=== PATIENT | female | born 1980 | race Caucasian/White ===

== ENCOUNTER 2018-06-16 11:59 | Emergency (ER) | payer MEDICAID ==
[~2018-06-16] VITALS: Ht 167.6 cm; Wt 108.4 kg
[2018-06-16] MEDS ORDERED: IPRATRPIUM/ALBUTEROL 0.5/2.5MG 3 ML NEBU. NEB ONE (12:45)
[2018-06-16] MEDS ORDERED: IV NORMAL SALINE 1000ML BAG 1,000 ML IV ONE (12:45)
--- NOTE | 2018-06-16 13:44 | RAD ---
EXAM: Chest, single view. HISTORY: Cough. COMPARISON: None. FINDINGS: A frontal view of the chest is obtained. There is no infiltrate, pleural effusion or pneumothorax. The heart is normal in size. IMPRESSION: No acute pulmonary finding. Electronically signed by: Payal Evans MD (06/16/2018 1:41 PM) [facility]
[2018-06-16 13:59] LABS: BASO # 0.1 x10^3/uL (0.0-0.2); BASO % 1 % (0-3); EOS # 0.1 x10^3/uL (0.0-0.7); EOS % 1 % (0-3); HEMATOCRIT 37.3 % (36.0-47.0); HEMOGLOBIN 12.8 g/dL (12.0-15.5); LYMPH # 1.8 x10^3/uL (1.0-4.8); LYMPH % 21 % (24-48); MEAN CORPUSCULAR HEMOGLOBIN 29 pg (25-35); MEAN CORPUSCULAR HGB CONC 34 g/dL (31-37); MEAN CORPUSCULAR VOLUME 85 fL (79-100); MONO # 0.4 x10^3/uL (0.0-1.1); MONO % 4 % (0-9); NEUT # 6.2 x10^3uL (1.8-7.7); NEUT % 73 % (31-73); PLATELET COUNT 260 x10^3/uL (140-400); RED BLOOD COUNT 4.38 x10^6/uL (3.50-5.40); WHITE BLOOD COUNT 8.5 x10^3/uL (4.0-11.0)
[2018-06-16 14:12] LABS: CALCIUM 9.4 mg/dL (8.5-10.1); CREATININE 0.9 mg/dL (0.6-1.0); GFR 69.3; POTASSIUM 3.7 mmol/L (3.5-5.1)
[2018-06-16 14:18] LABS: TOTAL BILIRUBIN 0.3 mg/dL (0.2-1.0); TOTAL PROTEIN 8.2 g/dL (6.4-8.2)
[2018-06-16 14:20] VITALS: BP 142/89
[2018-06-16] MEDS ORDERED: MECLIZINE HCL 12.5 MG TABLET. PO ONE (14:45)
[2018-06-16] MEDS ORDERED: KETOROLAC 15 MG/ML VIAL. IV ONE (14:45)
[2018-06-16 15:01] LABS: BILIRUBIN,URINE NEGATIVE (NEG); CLARITY,URINE CLEAR; COLOR,URINE YELLOW; NITRITE,URINE POSITIVE (NEG); PH,URINE 5.5; PROTEIN,URINE NEGATIVE (NEG-TRACE); UROBILINOGEN,URINE 0.2 mg/dL (0.2 mg/dL)
[2018-06-16] MEDS ORDERED: VENTOLIN HFA18 GM INH (15:01)
[2018-06-16] MEDS ORDERED: PRED50TA PO (15:01)
[2018-06-16 15:21] LABS: BACTERIA,URINE MANY /HPF (0-FEW); RBC,URINE 0 /HPF (0-2); SQUAMOUS EPITHELIAL CELL,UR MOD /LPF
--- NOTE | 2018-06-16 17:32 | PHYS DOC ---
Past Medical History Past Medical History: Asthma, GERD Past Surgical History: Cholecystectomy, Hysterectomy Alcohol Use: None Drug Use: None Adult General Chief Complaint Chief Complaint: ASTHMA HPI HPI Patient is a 38 year old female who is presenting with shortness of breath and lightheadedness and dizziness. She is just moving here from [place] she just got here yesterday she has had a cough with wheezing she does not have any albuterol at home she did not bring it. In addition she feels dizzy and lightheaded she thinks that is related to help short of breath she is feeling she has had no fever she does have mild to moderate headache that is gradually getting worse worse with the lights in the emergency room she does have a prior history of headaches. No fever chest pain worse with coughing Review of Systems Review of Systems Constitutional: Denies fever or chills [] Eyes: Denies change in visual acuity, redness, or eye pain [] HENT: Denies nasal congestion or sore throat [] Musculoskeletal: Denies back pain or joint pain [] Integument: Denies rash or skin lesions [] Neurologic: Denies, focal weakness or sensory changes [] Endocrine: Denies polyuria or polydipsia [] All other systems were reviewed and found to be within normal limits, except as documented in this note. Current Medications Current Medications Current Medications Medications (Trade) Dose Ordered Sig/Rena Start Time Stop Time Status Last Admin Dose Admin Albuterol/ Ipratropium (Duoneb) 3 ml 1X ONCE 06/16/18 12:45 06/16/18 12:50 DC 06/16/18 13:18 3 ML Ketorolac Tromethamine (Toradol 15mg Vial) 15 mg 1X ONCE 06/16/18 14:45 06/16/18 14:55 DC 06/16/18 15:04 15 MG Meclizine HCl (Antivert) 25 mg 1X ONCE 06/16/18 14:45 06/16/18 14:55 DC 06/16/18 15:02 25 MG Sodium Chloride 1,000 ml @ 1,000 mls/hr 1X ONCE 06/16/18 12:45 06/16/18 13:44 DC 06/16/18 13:03 1,000 MLS/HR Allergies Allergies Allergies Coded Allergies Type Severity Reaction Last Updated Verified Penicillins Allergy Unknown 06/16/18 Yes Sulfa (Sulfonamide Antibiotics) Allergy Unknown 06/16/18 Yes doxycycline Allergy Unknown 06/16/18 Yes Physical Exam Physical Exam Constitutional: Well developed, well nourished, no acute distress, non-toxic appearance. [] HENT: Normocephalic, atraumatic, bilateral external ears normal, oropharynx moist, no oral exudates, nose normal. [] Eyes: PERRLA, EOMI, conjunctiva normal, no discharge. [] Neck: Normal range of motion, no tenderness, supple, no stridor. [] Cardiovascular:Heart rate regular rhythm, no murmur [] Lungs & Thorax: Wheezing noted bilaterally speak in full sentences Abdomen: Bowel sounds normal, soft, no tenderness, no masses, no pulsatile masses. [] Skin: Warm, dry, no erythema, no rash. [] Back: No tenderness, no CVA tenderness. [] Extremities: No tenderness, no cyanosis, no clubbing, ROM intact, no edema. [] Neurologic: Alert and oriented X 3, normal motor function, normal sensory function, no focal deficits noted. []Cranial nerves intact Psychologic: Affect normal, judgement normal, mood normal. [] Current Patient Data Vital Signs Vital Signs Date Time Temp Pulse Resp B/P (MAP) Pulse Ox O2 Delivery O2 Flow Rate FiO2 06/16/18 14:20 90 14 142/89 (106) 97 06/16/18 13:50 Room Air 06/16/18 12:15 97.4 97.4 Lab Values Laboratory Tests Test 06/16/18 13:45 06/16/18 14:44 White Blood Count 8.5 x10^3/uL (4.0-11.0) Red Blood Count 4.38 x10^6/uL (3.50-5.40) Hemoglobin 12.8 g/dL (12.0-15.5) Hematocrit 37.3 % (36.0-47.0) Mean Corpuscular Volume 85 fL (79-100) Mean Corpuscular Hemoglobin 29 pg (25-35) Mean Corpuscular Hemoglobin Concent 34 g/dL (31-37) Red Cell Distribution Width 14.0 % (11.5-14.5) Platelet Count 260 x10^3/uL (140-400) Neutrophils (%) (Auto) 73 % (31-73) Lymphocytes (%) (Auto) 21 % (24-48) L Monocytes (%) (Auto) 4 % (0-9) Eosinophils (%) (Auto) 1 % (0-3) Basophils (%) (Auto) 1 % (0-3) Neutrophils # (Auto) 6.2 x10^3uL (1.8-7.7) Lymphocytes # (Auto) 1.8 x10^3/uL (1.0-4.8) Monocytes # (Auto) 0.4 x10^3/uL (0.0-1.1) Eosinophils # (Auto) 0.1 x10^3/uL (0.0-0.7) Basophils # (Auto) 0.1 x10^3/uL (0.0-0.2) Maternal Serum HCG Beta Subunit 1 mIU/mL (0-5) Sodium Level 139 mmol/L (136-145) Potassium Level 3.7 mmol/L (3.5-5.1) Chloride Level 103 mmol/L (98-107) Carbon Dioxide Level 28 mmol/L (21-32) Anion Gap 8 (6-14) Blood Urea Nitrogen 13 mg/dL (7-20) Creatinine 0.9 mg/dL (0.6-1.0) Estimated GFR (Cockcroft-Gault) 69.3 BUN/Creatinine Ratio 14 (6-20) Glucose Level 96 mg/dL (70-99) Calcium Level 9.4 mg/dL (8.5-10.1) Total Bilirubin 0.3 mg/dL (0.2-1.0) Aspartate Amino Transferase (AST) 19 U/L (15-37) Alanine Aminotransferase (ALT) 25 U/L (14-59) Alkaline Phosphatase 100 U/L (46-116) Troponin I Quantitative < 0.017 ng/mL (0.000-0.055) Total Protein 8.2 g/dL (6.4-8.2) Albumin 4.0 g/dL (3.4-5.0) Albumin/Globulin Ratio 1.0 (1.0-1.7) Urine Collection Type Void Urine Color Yellow Urine Clarity Clear Urine pH 5.5 Urine Specific [place] 1.010 Urine Protein Negative mg/dL (NEG-TRACE) Urine Glucose (UA) Negative mg/dL (NEG) Urine Ketones (Stick) Negative mg/dL (NEG) Urine Blood Negative (NEG) Urine Nitrite Positive (NEG) Urine Bilirubin Negative (NEG) Urine Urobilinogen Dipstick 0.2 mg/dL (0.2 mg/dL) Urine Leukocyte Esterase Negative (NEG) Urine RBC 0 /HPF (0-2) Urine WBC 1-4 /HPF (0-4) Urine Squamous Epithelial Cells Mod /LPF Urine Bacteria Many /HPF (0-FEW) Laboratory Tests 06/16/18 13:45 Laboratory Tests 06/16/18 13:45 EKG EKG [] Interpretation Time: EKG shows a normal sinus rhythm with a rate of 85 there are no acute ischemic changes noted this was interpreted by me the time of encounter Radiology/Procedures Radiology/Procedures [] Impressions: COMPARISON: None. FINDINGS: A frontal view of the chest is obtained. There is no infiltrate, pleural effusion or pneumothorax. The heart is normal in size. IMPRESSION: No acute pulmonary finding. Electronically signed by: Payal Evans MD (06/16/2018 1:41 PM) [facility] DICTATED and SIGNED BY: PAYAL EVANS MD DATE: 06/16/18 134 Course & Med Decision Making Course & Med Decision Making Pertinent Labs and Imaging studies reviewed. (See chart for details) []2-year-old female with history of asthma who is presenting with mild to moderate wheezing and some shortness of breath I suspect asthma exacerbation chest x-ray was clear patient improved after breathing treatment. She didn't or some dizziness and lightheadedness she did appear to have symptoms that seem Like a migraine she was given Toradol and meclizine as well with some improvement she was neurologically intact. Perhaps this was related to her asthma. Patient was given prednisone and albuterol and was discharged in stable condition. Dragon Disclaimer Dragon Disclaimer This electronic medical record was generated, in whole or in part, using a voice recognition dictation system. Departure Departure Impression: Primary Impression: Asthma Disposition: 01 HOME, SELF-CARE Condition: IMPROVED Patient Instructions: Asthma, Adult, [id number] Scripts Albuterol Sulfate (VENTOLIN HFA INHALER) 18 Gm Hfa.aer.ad 2 PUFF INH Q4HRS for FOR ASTHMA, #1 INHALER 0 Refills Prov: ELLIE ZENDEJAS MD 06/16/18 Prednisone (PREDNISONE) 50 Mg Tablet 1 TAB PO DAILY, #5 TAB Prov: ELLIE ZENDEJAS MD 06/16/18 ELLIE ZENDEJAS MD Jun 16, 2018 17:32
--- NOTE | 2018-06-17 11:07 | EKG ---
[facility] [address] [place] [address] Test Date: 2018-06-16 Test Time: 12:19:36 Pat Name: RAQUEL SCHAEFFER Department: Room: Gender: F [employer]: : 1980 Requested By: ELLIE ZENDEJAS Order Number: [id number] Reading MD: Abdiel Lujan MD Measurements Intervals [place] Rate: 85 P: 8 WI: 172 QRS: 19 QRSD: 80 T: 26 QT: 362 QTc: 436 Interpretive Statements SINUS RHYTHM Electronically Signed On 06-19-2018 9:09:21 CDT by Abdiel Lujan MD
--- NOTE | 2018-06-19 20:22 | VNOTE ---
CALL BACK NOTE CALL BACK Microbiology 06/16/18 Urine Culture - Final, Complete 06/16/18 Urine Culture Result 1 (ERON) - Final, Complete 06/16/18 Antimicrobic Susceptibility - Final, Complete 06/19/18 at 2020. Number not in service. SARANYA MORGAN Jun 19, 2018 20:22
== END 2018-06-16 16:13 | disposition home or self-care (01) ==
LOC: ER 11:59
DX: J45.909 Unspecified asthma, uncomplicated (principal); K21.9 Gastro-esophageal reflux disease without esophagitis; Z88.0 Allergy status to penicillin; Z88.1 Allergy status to other antibiotic agents; Z88.2 Allergy status to sulfonamides
CPT/HCPCS: 36415; 71045; 80053; 81001; 84484; 84702; 85025; 87086; 93005; 94640; 96361; 96374; 99285; J1885; J7030; J7620; J8597

== ENCOUNTER 2018-07-18 16:09 | Emergency (ER) | payer SELFPAY ==
[~2018-07-18] VITALS: Ht 165.1 cm; Wt 108.4 kg
[~2018-07-18 16:09] MED LIST: PRED50TA PO; VENTOLIN HFA18 GM INH
[2018-07-18 17:54] VITALS: BP 116/71
[2018-07-18 18:15] LABS: BILIRUBIN,URINE NEGATIVE (NEG); CLARITY,URINE CLEAR; COLOR,URINE YELLOW; NITRITE,URINE POSITIVE (NEG); PROTEIN,URINE NEGATIVE (NEG-TRACE); UROBILINOGEN,URINE 0.2 mg/dL (0.2 mg/dL)
[2018-07-18] MEDS: IOHEXOL 300 MG/ML 100ML VIAL. IV ONE (18:15)
[2018-07-18 18:21] LABS: BARBITURATES NEG (NEG); BENZODIAZEPINES NEG (NEG); CANNABINOIDS NEG (NEG); COCAINE NEG (NEG); METHADONE NEG (NEG); OPIATES NEG (NEG); PHENCYCLIDINE NEG (NEG)
[2018-07-18 18:22] LABS: AMPHETAMINE/METHAMPHETAMINE NEG (NEG)
[2018-07-18 18:23] LABS: BASO # 0.2 x10^3/uL (0.0-0.2); BASO % 2 % (0-3); EOS # 0.2 x10^3/uL (0.0-0.7); EOS % 2 % (0-3); HEMATOCRIT 38.6 % (36.0-47.0); HEMOGLOBIN 13.6 g/dL (12.0-15.5); LYMPH # 2.4 x10^3/uL (1.0-4.8); LYMPH % 29 % (24-48); MEAN CORPUSCULAR HEMOGLOBIN 30 pg (25-35); MEAN CORPUSCULAR HGB CONC 35 g/dL (31-37); MEAN CORPUSCULAR VOLUME 84 fL (79-100); MONO # 0.6 x10^3/uL (0.0-1.1); MONO % 7 % (0-9); NEUT # 5.1 x10^3uL (1.8-7.7); NEUT % 60 % (31-73); PLATELET COUNT 295 x10^3/uL (140-400); RED BLOOD COUNT 4.58 x10^6/uL (3.50-5.40); WHITE BLOOD COUNT 8.4 x10^3/uL (4.0-11.0)
[2018-07-18] MEDS ORDERED: CONTRAST GIVEN. MC PRN (18:30)
[2018-07-18] MEDS: FAMOTIDINE 20 MG/2 ML VIAL IVP ONE (18:33)
[2018-07-18] MEDS: IV NORMAL SALINE 1000ML BAG 1,000 ML IV ONE (18:33)
[2018-07-18] MEDS: ONDANSETRON PF 4 MG/2 ML VIAL. IV ONE (18:33)
[2018-07-18 19:09] LABS: BACTERIA,URINE MANY /HPF (0-FEW); RBC,URINE 0 /HPF (0-2); SQUAMOUS EPITHELIAL CELL,UR FEW /LPF
[2018-07-18 19:33] LABS: CALCIUM 9.8 mg/dL (8.5-10.1); CREATININE 0.8 mg/dL (0.6-1.0); GFR 79.4; POTASSIUM 3.9 mmol/L (3.5-5.1)
[2018-07-18 19:38] LABS: ALBUMIN 3.7 g/dL (3.4-5.0); ALBUMIN/GLOBULIN RATIO 0.8 (1.0-1.7); TOTAL BILIRUBIN 0.3 mg/dL (0.2-1.0); TOTAL PROTEIN 8.4 g/dL (6.4-8.2)
--- NOTE | 2018-07-18 20:24 | RAD ---
Exam performed: CT scan of the abdomen and pelvis with contrast Clinical Indication: Right lower quadrant abdominal pain with nausea and vomiting Date of Service: 07/18/2018 comparison: None available Technique: Contiguous helical acquisitions are obtained from the lung bases to the pelvis during intravenous administration of [75 mL of Omnipaque 300]. Sagittal and coronal reformatted images were obtained and reviewed. CT abdomen findings: The lung bases appear essentially clear. Visualized heart is normal. The liver and pancreas appears unremarkable. Cardiomegaly. Cholecystectomy. Both adrenal glands and bilateral kidneys appear normal with symmetric excretion of contrast via both kidneys. The small bowel loops appear nondilated and unremarkable. Aorta is normal in caliber. There is no retroperitoneal lymphadenopathy or mass lesions. No bowel related inflammatory stranding is noted. Appendix is not clearly identified, however no definite inflammatory changes are seen in the right lower quadrant. CT pelvis findings: The pelvic bowel loops are nondilated and unremarkable. The urinary bladder is decompressed, however normal. Hysterectomy. No adnexal masses are seen Interrogation of bone windows demonstrates no obvious bony abnormality. Sagittal and coronal reformatted images were obtained and reviewed which demonstrate no additional findings. Impression abdomen and pelvis : 1. Splenomegaly. 2. Appendix is not clearly identified and is no definite inflammatory changes in the right lower quadrant. Early acute appendicitis cannot be excluded with certainty. Correlate clinically for early acute appendicitis. PQRS Compliance Statement: One or more of the following individualized dose reduction techniques were utilized for this examination: 1. Automated exposure control 2. Adjustment of the mA and/or kV according to patient size 3. Use of iterative reconstruction technique Electronically signed by: Magdalena Fowler MD (07/18/2018 8:21 PM) [facility]
[2018-07-18] MEDS: MORPHINE SULFATE 10 MG/ML VIAL. IV ONE (20:33)
[2018-07-18] MEDS ORDERED: CIPR500T94 PO (21:34)
[2018-07-18] MEDS ORDERED: TRAM50TA PO (21:34)
[2018-07-18] MEDS ORDERED: ONDA4TAB10 SL (21:34)
--- NOTE | 2018-07-18 21:35 | PHYS DOC ---
Past Medical History Past Medical History: Asthma, GERD Past Surgical History: Cholecystectomy, Hysterectomy Alcohol Use: None Drug Use: None Adult General Chief Complaint Chief Complaint: NAUSEA/VOMITING/DIARRHA HPI HPI Patient is a 38 year old female with history of asthma, acid reflex, who presents today complaining of nausea, vomiting, slight diarrhea, and right sided abdominal pain that began 2 days ago. Patient denies any fever. Denies any chance she is , denies any hematemesis or melena. She rates her pain at 7 out of 10 and describes it as intermittent and sharp denies anything exacerbating or making the pain better. Review of Systems Review of Systems Constitutional: Denies fever or chills [] Eyes: Denies change in visual acuity, redness, or eye pain [] HENT: Denies nasal congestion or sore throat [] Respiratory: Denies cough or shortness of breath [] Cardiovascular: No additional information not addressed in HPI [] GI: Reports right-sided abdominal pain, nausea vomiting and diarrhea : Denies dysuria or hematuria [] Musculoskeletal: Denies back pain or joint pain [] Integument: Denies rash or skin lesions [] Neurologic: Denies headache, focal weakness or sensory changes [] All other systems were reviewed and found to be within normal limits, except as documented in this note. Current Medications Current Medications Current Medications Medications (Trade) Dose Ordered Sig/Rena Start Time Stop Time Status Last Admin Dose Admin Famotidine (Pepcid Vial) 20 mg 1X ONCE 07/18/18 18:00 07/18/18 18:01 DC 07/18/18 18:33 20 MG Info (CONTRAST GIVEN -- Rx MONITORING) 1 each PRN DAILY PRN 07/18/18 18:30 07/18/18 21:47 DC Iohexol (Omnipaque 300 Mg/ml) 75 ml 1X ONCE 07/18/18 18:15 07/18/18 18:16 DC 07/18/18 18:15 75 ML Morphine Sulfate (Morphine Sulfate) 5 mg 1X ONCE 07/18/18 20:30 07/18/18 20:31 DC 07/18/18 20:33 5 MG Ondansetron HCl (Zofran) 4 mg 1X ONCE 07/18/18 18:00 07/18/18 18:01 DC 07/18/18 18:33 4 MG Sodium Chloride 1,000 ml @ 1,000 mls/hr 1X ONCE 07/18/18 18:00 07/18/18 18:59 DC 07/18/18 18:33 1,000 MLS/HR Allergies Allergies Allergies Coded Allergies Type Severity Reaction Last Updated Verified Penicillins Allergy Unknown 06/16/18 Yes Sulfa (Sulfonamide Antibiotics) Allergy Unknown 06/16/18 Yes doxycycline Allergy Unknown 06/16/18 Yes Physical Exam Physical Exam Constitutional: Well developed, well nourished, no acute distress, non-toxic appearance. [] HENT: Normocephalic, atraumatic, bilateral external ears normal, oropharynx moist, no oral exudates, nose normal. [] Eyes: PERRLA, EOMI, conjunctiva normal, no discharge. [] Neck: Normal range of motion, no tenderness, supple, no stridor. [] Cardiovascular:Heart rate regular rhythm, no murmur [] Lungs & Thorax: Bilateral breath sounds clear to auscultation [] Abdomen: Obese rounded abdomen. Bowel sounds normal, soft, no tenderness, no masses, no pulsatile masses. Negative psoas sign, negative Rovsing sign, negative obturator sign, negative Nayak sign, no guarding no rebound pain or tenderness Skin: Warm, dry, no erythema, no rash. [] Back: No tenderness, no CVA tenderness. [] Extremities: No tenderness, no cyanosis, no clubbing, ROM intact, no edema. [] Neurologic: Alert and oriented X 3, normal motor function, normal sensory function, no focal deficits noted. [] Psychologic: Affect normal, judgement normal, mood normal. [] Current Patient Data Vital Signs Vital Signs Date Time Temp Pulse Resp B/P (MAP) Pulse Ox O2 Delivery O2 Flow Rate FiO2 07/18/18 20:33 18 98 Room Air 07/18/18 17:54 97.9 75 116/71 (86) 97.9 Lab Values Laboratory Tests Test 07/18/18 17:50 07/18/18 18:11 Urine Collection Type Unknown Urine Color Yellow Urine Clarity Clear Urine pH 5.0 Urine Specific [place] 1.025 Urine Protein Negative mg/dL (NEG-TRACE) Urine Glucose (UA) Negative mg/dL (NEG) Urine Ketones (Stick) Negative mg/dL (NEG) Urine Blood Negative (NEG) Urine Nitrite Positive (NEG) Urine Bilirubin Negative (NEG) Urine Urobilinogen Dipstick 0.2 mg/dL (0.2 mg/dL) Urine Leukocyte Esterase Negative (NEG) Urine RBC 0 /HPF (0-2) Urine WBC 1-4 /HPF (0-4) Urine Squamous Epithelial Cells Few /LPF Urine Bacteria Many /HPF (0-FEW) Urine Opiates Screen Neg (NEG) Urine Methadone Screen Neg (NEG) Urine Barbiturates Neg (NEG) Urine Phencyclidine Screen Neg (NEG) Urine Amphetamine/Methamphetamine Neg (NEG) Urine Benzodiazepines Screen Neg (NEG) Urine Cocaine Screen Neg (NEG) Urine Cannabinoids Screen Neg (NEG) Urine Ethyl Alcohol Neg (NEG) White Blood Count 8.4 x10^3/uL (4.0-11.0) Red Blood Count 4.58 x10^6/uL (3.50-5.40) Hemoglobin 13.6 g/dL (12.0-15.5) Hematocrit 38.6 % (36.0-47.0) Mean Corpuscular Volume 84 fL (79-100) Mean Corpuscular Hemoglobin 30 pg (25-35) Mean Corpuscular Hemoglobin Concent 35 g/dL (31-37) Red Cell Distribution Width 14.0 % (11.5-14.5) Platelet Count 295 x10^3/uL (140-400) Neutrophils (%) (Auto) 60 % (31-73) Lymphocytes (%) (Auto) 29 % (24-48) Monocytes (%) (Auto) 7 % (0-9) Eosinophils (%) (Auto) 2 % (0-3) Basophils (%) (Auto) 2 % (0-3) Neutrophils # (Auto) 5.1 x10^3uL (1.8-7.7) Lymphocytes # (Auto) 2.4 x10^3/uL (1.0-4.8) Monocytes # (Auto) 0.6 x10^3/uL (0.0-1.1) Eosinophils # (Auto) 0.2 x10^3/uL (0.0-0.7) Basophils # (Auto) 0.2 x10^3/uL (0.0-0.2) Sodium Level 142 mmol/L (136-145) Potassium Level 3.9 mmol/L (3.5-5.1) Chloride Level 104 mmol/L (98-107) Carbon Dioxide Level 25 mmol/L (21-32) Anion Gap 13 (6-14) Blood Urea Nitrogen 15 mg/dL (7-20) Creatinine 0.8 mg/dL (0.6-1.0) Estimated GFR (Cockcroft-Gault) 79.4 BUN/Creatinine Ratio 19 (6-20) Glucose Level 101 mg/dL (70-99) H Calcium Level 9.8 mg/dL (8.5-10.1) Total Bilirubin 0.3 mg/dL (0.2-1.0) Aspartate Amino Transferase (AST) 13 U/L (15-37) L Alanine Aminotransferase (ALT) 23 U/L (14-59) Alkaline Phosphatase 95 U/L (46-116) Total Protein 8.4 g/dL (6.4-8.2) H Albumin 3.7 g/dL (3.4-5.0) Albumin/Globulin Ratio 0.8 (1.0-1.7) L Lipase 287 U/L (73-393) Ethyl Alcohol Level < 10 mg/dL (0-10) Laboratory Tests 07/18/18 18:11 Laboratory Tests 07/18/18 18:11 Microbiology 07/18/18 Urine Culture - Final, Complete 07/18/18 Urine Culture Result 1 (ERON) - Final, Complete 07/18/18 Antimicrobic Susceptibility - Final, Complete EKG EKG [] Radiology/Procedures Radiology/Procedures []PROCEDURE: CT ABD PELV W/ IV CONTRST ONLY Exam performed: CT scan of the abdomen and pelvis with contrast Clinical Indication: Right lower quadrant abdominal pain with nausea and vomiting Date of Service: 07/18/2018 comparison: None available Technique: Contiguous helical acquisitions are obtained from the lung bases to the pelvis during intravenous administration of [75 mL of Omnipaque 300]. Sagittal and coronal reformatted images were obtained and reviewed. CT abdomen findings: The lung bases appear essentially clear. Visualized heart is normal. The liver and pancreas appears unremarkable. Cardiomegaly. Cholecystectomy. Both adrenal glands and bilateral kidneys appear normal with symmetric excretion of contrast via both kidneys. The small bowel loops appear nondilated and unremarkable. Aorta is normal in caliber. There is no retroperitoneal lymphadenopathy or mass lesions. No bowel related inflammatory stranding is noted. Appendix is not clearly identified, however no definite inflammatory changes are seen in the right lower quadrant. CT pelvis findings: The pelvic bowel loops are nondilated and unremarkable. The urinary bladder is decompressed, however normal. Hysterectomy. No adnexal masses are seen Interrogation of bone windows demonstrates no obvious bony abnormality. Sagittal and coronal reformatted images were obtained and reviewed which demonstrate no additional findings. Impression abdomen and pelvis : 1. Splenomegaly. 2. Appendix is not clearly identified and is no definite inflammatory changes in the right lower quadrant. Early acute appendicitis cannot be excluded with certainty. Correlate clinically for early acute appendicitis. PQRS Compliance Statement: One or more of the following individualized dose reduction techniques were utilized for this examination: 1. Automated exposure control 2. Adjustment of the mA and/or kV according to patient size 3. Use of iterative reconstruction technique Electronically signed by: Yonas Fowler MD (07/18/2018 8:21 PM) [facility] DICTATED and SIGNED BY: YONAS FOWLER MD DATE: 07/18/18 2017 Course & Med Decision Making Course & Med Decision Making Pertinent Labs and Imaging studies reviewed. (See chart for details) This is a 38-year-old female patient presenting to the ED today with nausea, vomiting, slight diarrhea, right-sided abdominal pain for 2 days. CBC CMP lipase with no acute findings. Urine analysis is noted for UTI, CT of the abdomen and pelvic was negative for any acute findings CT could not rule out appendicitis though no inflammation of the process was noted on the right lower quadrant. Patient was discharged on Cipro. She is allergic to penicillin and Bactrim. Follow-up with primary care doctor in one week. Tramadol for pain. Zofran provided. Kaylen Disclaimer Kaylen Disclaimer This electronic medical record was generated, in whole or in part, using a voice recognition dictation system. Departure Departure Impression: Primary Impression: Urinary tract infection Additional Impressions: Nausea and vomiting Diarrhea Disposition: 01 HOME, SELF-CARE Condition: STABLE Referrals: NO PCP (PCP) Follow-up with your own doctor in one week Patient Instructions: Diarrhea, Nausea and Vomiting, Urinary Tract Infection Additional Instructions: You were evaluated in the emergency room on noted to have urinary tract infection, complete your antibiotics. Take the prescribed medications as needed for pain. 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 I was available for consultation as needed during the patient's visit in the emergency department. I agree with the clinical impression, plan, and disposition. Problem Qualifiers Primary Impression: Urinary tract infection Urinary tract infection type: site unspecified Hematuria presence: without hematuria Qualified Codes: N39.0 - Urinary tract infection, site not specified Additional Impressions: Nausea and vomiting Vomiting type: unspecified Vomiting Intractability: unspecified Qualified Codes: R11.2 - Nausea with vomiting, unspecified Diarrhea Diarrhea type: unspecified type Qualified Codes: R19.7 - Diarrhea, unspecified AMOR NI JENNIFER Jul 18, 2018 21:35 KAMILLA AGUILAR DO Jul 23, 2018 07:25
== END 2018-07-18 21:45 | disposition home or self-care (01) ==
LOC: ER 16:09
DX: N39.0 Urinary tract infection, site not specified (principal); R19.7 Diarrhea, unspecified; J45.909 Unspecified asthma, uncomplicated; K21.9 Gastro-esophageal reflux disease without esophagitis; Z90.49 Acquired absence of other specified parts of digestive tract; Z90.710 Acquired absence of both cervix and uterus; Z88.0 Allergy status to penicillin; Z88.2 Allergy status to sulfonamides; Z88.1 Allergy status to other antibiotic agents
CPT/HCPCS: 36415; 74177; 80053; 80307; 81001; 83690; 85025; 87086; 96361; 96374; 96375; 99285; G0480; J2270; J2405; J7030; Q9967; S0028; G0479

== ENCOUNTER 2018-07-24 08:20 | Emergency (ER) | payer OTHER ==
[~2018-07-24] VITALS: Ht 170.2 cm; Wt 117.9 kg
[~2018-07-24 08:20] MED LIST changes: +CIPR500T94 PO; +ONDA4TAB10 SL; +TRAM50TA PO
[2018-07-24 08:40] LABS: BILIRUBIN,URINE NEGATIVE (NEG); CLARITY,URINE CLEAR; COLOR,URINE YELLOW; NITRITE,URINE NEGATIVE (NEG); PROTEIN,URINE NEGATIVE (NEG-TRACE); UROBILINOGEN,URINE 0.2 mg/dL (0.2 mg/dL)
--- NOTE | 2018-07-24 08:42 | PHYS DOC ---
Past Medical History Past Medical History: Asthma, GERD Past Surgical History: Cholecystectomy, Hysterectomy Alcohol Use: None Drug Use: None Adult General Chief Complaint Chief Complaint: PAIN ON URINATION [facility] HPI Patient is a 38 year old female presents to the ED complaining of abdominal pain 1 week. Patient was seen on the and diagnosed with urinary tract infection (taking cipro at home). Negative CT imaging. Patient is complaining of pain to right sided abdomen. Describes pain as sharp. Rates the pain as 8 out of 10. Associated symptoms include dysuria. States this pain is worse than at the previous visit. Denies STD exposure, blood in stool, chest pain, shortness of breath, nausea/vomiting, weakness, fever, headache. Review of Systems Review of Systems Constitutional: Denies fever or chills [] Eyes: Denies change in visual acuity, redness, or eye pain [] HENT: Denies nasal congestion or sore throat [] Respiratory: Denies cough or shortness of breath [] Cardiovascular: No additional information not addressed in HPI [] GI: Complains of abdominal pain. Denies nausea, vomiting, bloody stools or diarrhea [] : Complains of dysuria. Denies hematuria [] Musculoskeletal: Denies back pain or joint pain [] Integument: Denies rash or skin lesions [] Neurologic: Denies headache, focal weakness or sensory changes [] All other systems were reviewed and found to be within normal limits, except as documented in this note. Current Medications Current Medications Current Medications Medications (Trade) Dose Ordered Sig/Rena Start Time Stop Time Status Last Admin Dose Admin Fentanyl Citrate (Fentanyl 2ml Vial) 75 mcg 1X ONCE 07/24/18 10:15 07/24/18 10:17 DC 07/24/18 10:26 75 MCG Info (CONTRAST GIVEN -- Rx MONITORING) 1 each PRN DAILY PRN 07/24/18 10:30 07/24/18 11:34 DC Iohexol (Omnipaque 300 Mg/ml) 75 ml 1X ONCE 07/24/18 10:30 07/24/18 10:31 DC 07/24/18 10:31 75 ML Ondansetron HCl (Zofran) 4 mg 1X ONCE 07/24/18 10:15 07/24/18 10:17 DC 07/24/18 10:26 4 MG Allergies Allergies Allergies Coded Allergies Type Severity Reaction Last Updated Verified Penicillins Allergy Unknown 06/16/18 Yes Sulfa (Sulfonamide Antibiotics) Allergy Unknown 06/16/18 Yes doxycycline Allergy Unknown 06/16/18 Yes Physical Exam Physical Exam Constitutional: no acute distress, non-toxic appearance. [] HENT: Normocephalic, atraumatic, oropharynx moist Eyes: PERRLA, EOMI, conjunctiva normal, no discharge. [] Neck: Normal range of motion, no tenderness, supple, no stridor. [] Cardiovascular:Heart rate regular rhythm, no murmur [] Lungs & Thorax: Bilateral breath sounds clear to auscultation [] Abdomen: Bowel sounds normal, soft, mild diffuse lower tenderness, no masses, no pulsatile masses. [] Skin: Warm, dry, no erythema, no rash. [] Back: No tenderness, no CVA tenderness. [] Extremities: No tenderness, no cyanosis, no clubbing, ROM intact, no edema. [] Neurologic: Alert and oriented X 3, normal motor function, normal sensory function, no focal deficits noted. [] Psychologic: Affect normal, judgement normal, mood normal. [] Current Patient Data Vital Signs Vital Signs Date Time Temp Pulse Resp B/P (MAP) Pulse Ox O2 Delivery O2 Flow Rate FiO2 07/24/18 10:34 66 20 139/68 (91) 96 07/24/18 08:36 97.9 Room Air 97.9 Lab Values Laboratory Tests Test 07/24/18 08:29 07/24/18 08:55 Urine Collection Type Unknown Urine Color Yellow Urine Clarity Clear Urine pH 5.0 Urine Specific [place] 1.015 Urine Protein Negative mg/dL (NEG-TRACE) Urine Glucose (UA) Negative mg/dL (NEG) Urine Ketones (Stick) Negative mg/dL (NEG) Urine Blood Negative (NEG) Urine Nitrite Negative (NEG) Urine Bilirubin Negative (NEG) Urine Urobilinogen Dipstick 0.2 mg/dL (0.2 mg/dL) Urine Leukocyte Esterase Negative (NEG) Urine RBC 0 /HPF (0-2) Urine WBC 1-4 /HPF (0-4) Urine Squamous Epithelial Cells Few /LPF Urine Bacteria Few /HPF (0-FEW) White Blood Count 8.6 x10^3/uL (4.0-11.0) Red Blood Count 4.45 x10^6/uL (3.50-5.40) Hemoglobin 12.9 g/dL (12.0-15.5) Hematocrit 37.5 % (36.0-47.0) Mean Corpuscular Volume 84 fL (79-100) Mean Corpuscular Hemoglobin 29 pg (25-35) Mean Corpuscular Hemoglobin Concent 34 g/dL (31-37) Red Cell Distribution Width 14.1 % (11.5-14.5) Platelet Count 269 x10^3/uL (140-400) Neutrophils (%) (Auto) 70 % (31-73) Lymphocytes (%) (Auto) 23 % (24-48) L Monocytes (%) (Auto) 5 % (0-9) Eosinophils (%) (Auto) 2 % (0-3) Basophils (%) (Auto) 1 % (0-3) Neutrophils # (Auto) 6.0 x10^3uL (1.8-7.7) Lymphocytes # (Auto) 2.0 x10^3/uL (1.0-4.8) Monocytes # (Auto) 0.4 x10^3/uL (0.0-1.1) Eosinophils # (Auto) 0.1 x10^3/uL (0.0-0.7) Basophils # (Auto) 0.1 x10^3/uL (0.0-0.2) Sodium Level 141 mmol/L (136-145) Potassium Level 4.1 mmol/L (3.5-5.1) Chloride Level 104 mmol/L (98-107) Carbon Dioxide Level 27 mmol/L (21-32) Anion Gap 10 (6-14) Blood Urea Nitrogen 16 mg/dL (7-20) Creatinine 0.8 mg/dL (0.6-1.0) Estimated GFR (Cockcroft-Gault) 79.4 BUN/Creatinine Ratio 20 (6-20) Glucose Level 95 mg/dL (70-99) Calcium Level 9.5 mg/dL (8.5-10.1) Total Bilirubin 0.4 mg/dL (0.2-1.0) Aspartate Amino Transferase (AST) 14 U/L (15-37) L Alanine Aminotransferase (ALT) 23 U/L (14-59) Alkaline Phosphatase 94 U/L (46-116) Total Protein 8.1 g/dL (6.4-8.2) Albumin 3.7 g/dL (3.4-5.0) Albumin/Globulin Ratio 0.8 (1.0-1.7) L Lipase 299 U/L (73-393) Laboratory Tests 07/24/18 08:55 Laboratory Tests 07/24/18 08:55 EKG EKG [] Radiology/Procedures Radiology/Procedures PROCEDURE: CT ABD PELV W/ IV CONTRST ONLY CT abdomen and pelvis with contrast History: Right lower quadrant tenderness Technique: After the administration of intravenous contrast, CT imaging was performed of the abdomen and pelvis. No oral contrast was given as per request. Multiplanar images are reviewed. Exposure: One or more of the following individualized dose reduction techniques were utilized for this examination: 1. Automated exposure control 2. Adjustment of the mA and/or kV according to patient size 3. Use of iterative reconstruction technique. Contrast: 75 cc Omnipaque 300 Comparison: July 18, 2018 Findings: There is no significant abnormality of the visualized lung bases. There is acute hepatosplenomegaly. Both kidneys enhance, no hydronephrosis. There is no new abnormality of the pancreas. There again has been cholecystectomy. Gallbladder is present without obvious intraluminal abnormality by CT. Accurate evaluation of bowel is limited without oral contrast. Normal caliber appendix is visualized. There is retained stool greater right colon. There is probably a diverticulum associated with the descending duodenum although poorly evaluated especially without contrast, underlying duodenal wall thickening difficult to exclude. There is no significant free fluid or free air. Small bowel is not significantly dilated. There is mild distention of the urinary bladder. There are some inguinal nodes bilaterally although not considered significantly enlarged, largest on the left about 0.9 cm short axis dimension. There are also some small nodes along the iliac chains, also small mesenteric nodes. Impression: 1. There is no CT evidence of acute appendicitis. 2. There is again hepatosplenomegaly. 3. There is again probable diverticulum associated with the descending duodenum versus underlying tortuosity, associated wall thickening difficult to exclude by this exam as could be related to duodenitis in the appropriate clinical setting.[] Course & Med Decision Making Course & Med Decision Making Pertinent Labs and Imaging studies reviewed. (See chart for details) []Discussed lab and imaging findings with patient. Patient's pain improved. On reexamination, abdomen is soft nontender nondistended. No peritoneal signs. Tolerating by mouth. Will change patient's antibiotic to Keflex per her still having symptoms but UA is negative. Discussed follow-up and reasons to return to the ED. Patient understands and agrees with plan. Dragon Disclaimer Dragon Disclaimer This electronic medical record was generated, in whole or in part, using a voice recognition dictation system. Departure Departure Impression: Primary Impression: Dysuria Additional Impression: Abdominal pain Disposition: HOME, SELF-CARE Condition: IMPROVED Referrals: NO PCP (PCP) KAMILLA BARTON MD, SCOTT S MD Patient Instructions: Abdominal Pain, Dysuria Scripts Cephalexin (KEFLEX) 500 Mg Capsule 500 MG PO QID for 7 Days, #28 CAP Prov: SARANYA MORGAN 07/24/18 Attending Signature Attending Signature I have reviewed the PA/SENIOR SUSTAINABILITY CONSULTANT's note and plan of care. I was available for consultation as needed during the patient's visit in the emergency department. I agree with the clinical impression, plan, and disposition. Problem Qualifiers SARANYA MORGAN Jul 24, 2018 08:42 KAMILLA AGUILAR DO Jul 29, 2018 17:11
[2018-07-24 08:50] LABS: BACTERIA,URINE FEW /HPF (0-FEW); RBC,URINE 0 /HPF (0-2); SQUAMOUS EPITHELIAL CELL,UR FEW /LPF
[2018-07-24 09:09] LABS: BASO # 0.1 x10^3/uL (0.0-0.2); BASO % 1 % (0-3); EOS # 0.1 x10^3/uL (0.0-0.7); EOS % 2 % (0-3); HEMATOCRIT 37.5 % (36.0-47.0); HEMOGLOBIN 12.9 g/dL (12.0-15.5); LYMPH % 23 % (24-48); MEAN CORPUSCULAR HEMOGLOBIN 29 pg (25-35); MEAN CORPUSCULAR HGB CONC 34 g/dL (31-37); MEAN CORPUSCULAR VOLUME 84 fL (79-100); MONO # 0.4 x10^3/uL (0.0-1.1); MONO % 5 % (0-9); NEUT % 70 % (31-73); PLATELET COUNT 269 x10^3/uL (140-400); RED BLOOD COUNT 4.45 x10^6/uL (3.50-5.40); RED CELL DISTRIBUTION WIDTH 14.1 % (11.5-14.5); WHITE BLOOD COUNT 8.6 x10^3/uL (4.0-11.0)
[2018-07-24 09:19] LABS: CALCIUM 9.5 mg/dL (8.5-10.1); CREATININE 0.8 mg/dL (0.6-1.0); GFR 79.4; POTASSIUM 4.1 mmol/L (3.5-5.1)
[2018-07-24 09:25] LABS: ALBUMIN 3.7 g/dL (3.4-5.0); ALBUMIN/GLOBULIN RATIO 0.8 (1.0-1.7); TOTAL BILIRUBIN 0.4 mg/dL (0.2-1.0); TOTAL PROTEIN 8.1 g/dL (6.4-8.2)
[2018-07-24] MEDS ORDERED: fentaNYL PF VIAL 100 MCG/2 ML VIAL IV ONE (10:15)
[2018-07-24] MEDS ORDERED: ONDANSETRON PF 4 MG/2 ML VIAL. IV ONE (10:15)
[2018-07-24] MEDS ORDERED: CONTRAST GIVEN. MC PRN (10:30)
[2018-07-24] MEDS ORDERED: IOHEXOL 300 MG/ML 100ML VIAL. IV ONE (10:30)
[2018-07-24 10:34] VITALS: BP 139/68
--- NOTE | 2018-07-24 11:00 | RAD ---
CT abdomen and pelvis with contrast History: Right lower quadrant tenderness Technique: After the administration of intravenous contrast, CT imaging was performed of the abdomen and pelvis. No oral contrast was given as per request. Multiplanar images are reviewed. Exposure: One or more of the following individualized dose reduction techniques were utilized for this examination: 1. Automated exposure control 2. Adjustment of the mA and/or kV according to patient size 3. Use of iterative reconstruction technique. Contrast: 75 cc Omnipaque 300 Comparison: July 18, 2018 Findings: There is no significant abnormality of the visualized lung bases. There is acute hepatosplenomegaly. Both kidneys enhance, no hydronephrosis. There is no new abnormality of the pancreas. There again has been cholecystectomy. Gallbladder is present without obvious intraluminal abnormality by CT. Accurate evaluation of bowel is limited without oral contrast. Normal caliber appendix is visualized. There is retained stool greater right colon. There is probably a diverticulum associated with the descending duodenum although poorly evaluated especially without contrast, underlying duodenal wall thickening difficult to exclude. There is no significant free fluid or free air. Small bowel is not significantly dilated. There is mild distention of the urinary bladder. There are some inguinal nodes bilaterally although not considered significantly enlarged, largest on the left about 0.9 cm short axis dimension. There are also some small nodes along the iliac chains, also small mesenteric nodes. Impression: 1. There is no CT evidence of acute appendicitis. 2. There is again hepatosplenomegaly. 3. There is again probable diverticulum associated with the descending duodenum versus underlying tortuosity, associated wall thickening difficult to exclude by this exam as could be related to duodenitis in the appropriate clinical setting. Electronically signed by: Jefe Brown MD (07/24/2018 10:56 AM) [id number]
[2018-07-24] MEDS ORDERED: CEPH-264 PO (11:08)
== END 2018-07-24 11:34 | disposition home or self-care (01) ==
LOC: ER 08:20
DX: R10.31 Right lower quadrant pain (principal); R10.32 Left lower quadrant pain; R30.0 Dysuria; K21.9 Gastro-esophageal reflux disease without esophagitis; J45.909 Unspecified asthma, uncomplicated; Z90.710 Acquired absence of both cervix and uterus; Z90.49 Acquired absence of other specified parts of digestive tract; Z88.0 Allergy status to penicillin; Z88.2 Allergy status to sulfonamides; Z88.1 Allergy status to other antibiotic agents
CPT/HCPCS: 36415; 74177; 80053; 81001; 83690; 85025; 96374; 96375; 99285; J2405; J3010; Q9967

== ENCOUNTER 2018-08-05 15:34 | Emergency (ER) | payer OTHER ==
[~2018-08-05] VITALS: Ht 165.1 cm; Wt 117.9 kg
[~2018-08-05 15:34] MED LIST changes: +CEPH-264 PO
[2018-08-05 16:05] VITALS: BP 112/69
[2018-08-05] MEDS ORDERED: NAPROXEN 500 MG TABLET PO STA (16:06)
[2018-08-05] MEDS ORDERED: HYDROcodone/APAP 5/325MG 1 TAB TABLET PO ONE (16:15)
[2018-08-05] MEDS ORDERED: DICL50TA4 PO (17:02)
[2018-08-05] MEDS ORDERED: GABA-586 PO (17:02)
[2018-08-05] MEDS ORDERED: METH4TAB2 PO (17:02)
--- NOTE | 2018-08-05 17:02 | PHYS DOC ---
Past Medical History Past Medical History: Asthma, GERD, Kidney Stone Past Surgical History: Cholecystectomy, Hysterectomy Alcohol Use: None Drug Use: None Adult General Chief Complaint Chief Complaint: FOOT INJURY PAIN HPI HPI Patient is a 38 year old female who presents with mild pain to the right foot that began today. Patient states the pain is worse on weight bearing. Describes the pain as throbbing and intermittent. Has not tried anything for her pain. Review of Systems Review of Systems Constitutional: Denies fever or chills [] Musculoskeletal: Reports right foot pain Integument: Denies rash or skin lesions [] Neurologic: Denies headache, focal weakness or sensory changes [] All other systems were reviewed and found to be within normal limits, except as documented in this note. Current Medications Current Medications Current Medications Medications (Trade) Dose Ordered Sig/Rena Start Time Stop Time Status Last Admin Dose Admin Acetaminophen/ Hydrocodone Bitart (Lortab 5/325) 2 tab 1X ONCE 08/05/18 16:15 08/05/18 16:16 DC 08/05/18 16:29 2 TAB Naproxen (Naprosyn) 500 mg 1X STAT 08/05/18 16:06 08/05/18 16:13 DC 08/05/18 16:27 500 MG Allergies Allergies Allergies Coded Allergies Type Severity Reaction Last Updated Verified Penicillins Allergy Unknown 06/16/18 Yes Sulfa (Sulfonamide Antibiotics) Allergy Unknown 06/16/18 Yes doxycycline Allergy Unknown 06/16/18 Yes Physical Exam Physical Exam Constitutional: Well developed, well nourished, no acute distress, non-toxic appearance. [] Skin: Warm, dry, no erythema, no rash. [] Back: No tenderness, no CVA tenderness. [] Extremities: Right foot with no obvious deformity. No warmth, no erythema. Tenderness on palpation of the right great toe MTP joint. Full range of motion to the right foot and toes. +2 right pedal pulse. Cap refill less than 2 seconds the right toes. Neurologic: Alert and oriented X 3, normal motor function, normal sensory function, no focal deficits noted. [] Psychologic: Affect normal, judgement normal, mood normal. [] EKG EKG [] Radiology/Procedures Radiology/Procedures [] Course & Med Decision Making Course & Med Decision Making Pertinent Labs and Imaging studies reviewed. (See chart for details) This is a 38-year-old female patient presenting to the ED today with right foot pain, no known injury. Right foot x-rays are negative for any acute findings as interpreted by Dr. Bangura. Patient was placed in an orthopedic shoe. Ice elevation encouraged. Given prescription for diclofenac, Medrol dose pack and Gabapentin. Follow-up with orthopedic doctor in one week if pain continues. Dragon Disclaimer Dragon Disclaimer This electronic medical record was generated, in whole or in part, using a voice recognition dictation system. Departure Departure Impression: Primary Impression: Right foot pain Disposition: HOME, SELF-CARE Condition: STABLE Referrals: JIMENA RAYMOND NP (PCP) JOHNSON FREIRE MD follow up in one week Patient Instructions: Foot Sprain Additional Instructions: You were evaluated in the emergency room for right foot pain, your right foot x- rays are negative for any acute findings. Try to ice and elevate the extremity. Take the prescribed medications as ordered. Follow-up with the provided orthopedic doctor or your own doctor in 1-2 weeks. Scripts Methylprednisolone (MEDROL) 4 Mg Tab.ds.pk 1 PKG PO UD, #1 PKG Prov: AMOR NI APRN 08/05/18 Gabapentin (GABAPENTIN) 300 Mg Capsule 300 MG PO TID, #30 CAP Prov: AMOR NI APRN 08/05/18 Diclofenac Sodium (DICLOFENAC SODIUM) 50 Mg Tablet. 1 TAB PO BID, #30 TAB 0 Refills Prov: AMOR NI APRN 08/05/18 AMOR NI APRN Aug 05, 2018 17:02
--- NOTE | 2018-08-05 17:03 | RAD ---
RIGHT FOOT AP LATERAL OBLIQUE Clinical Indication: FOOT PAIN WHILE WALKING. NO TRAUMA Comparison: None. Findings: There is no acute fracture or dislocation. The bony alignment is normal. Mineralization is normal. No bony erosion. Large plantar calcaneal enthesophyte. There is no soft tissue abnormality. IMPRESSION: No acute fracture or dislocation. Electronically signed by: Yung Odom MD (08/05/2018 4:59 PM) [facility]
== END 2018-08-05 17:16 | disposition home or self-care (01) ==
LOC: ER 15:34
DX: M25.571 Pain in right ankle and joints of right foot (principal); J45.909 Unspecified asthma, uncomplicated; K21.9 Gastro-esophageal reflux disease without esophagitis; Z90.710 Acquired absence of both cervix and uterus; Z90.49 Acquired absence of other specified parts of digestive tract; Z88.0 Allergy status to penicillin; Z88.2 Allergy status to sulfonamides; Z88.1 Allergy status to other antibiotic agents
CPT/HCPCS: 73630; 99284